=== PATIENT | male | born 1940 | race Caucasian/White ===

== ENCOUNTER 2018-02-16 12:07 | Emergency (ER) | payer MEDICARE, BC ==
[~2018-02-16] VITALS: Ht 177.8 cm; Wt 86.2 kg
[~2018-02-16 12:07] MED LIST: SIMV20TA6 PO; TAMS-12 PO
[2018-02-16 12:28] VITALS: BP 140/79
== END 2018-02-16 13:21 | disposition home or self-care (01) ==
LOC: ER 12:08
DX: S51.812A Laceration without foreign body of left forearm, initial encounter (principal); E78.00 Pure hypercholesterolemia, unspecified; Z79.82 Long term (current) use of aspirin; Z79.899 Other long term (current) drug therapy; W20.8XXA Other cause of strike by thrown, projected or falling object, initial encounter; Y93.01 Activity, walking, marching and hiking; Y92.89 Other specified places as the place of occurrence of the external cause; Y99.8 Other external cause status
CPT/HCPCS: 99282; A4606; Z7502; Z7610